=== PATIENT | female | born 1975 | race Caucasian/White ===

== ENCOUNTER 2017-04-27 08:21 | Day surgery (SDC) | payer OTHER ==
[~2017-04-27] VITALS: Ht 165.1 cm; Wt 54.5 kg
[2017-04-27] MEDS ORDERED: LACTATED RINGERS 1,000 ML IV SCH (08:57)
[2017-04-27] MEDS ORDERED: PRE NATAL VITAMIN PO (09:01)
[2017-04-27 09:24] VITALS: BP 112/65
[2017-04-27 09:24] LABS: BASOPHILS # (AUTO) 0.02 x10^3/uL (0-0.1); BASOPHILS % (AUTO) 0 % (0-1); EOSINOPHILS # (AUTO) 0.01 x10^3/uL (0-0.4); EOSINOPHILS % (AUTO) 0 % (1-7); LYMPHOCYTES # (AUTO) 1.92 x10^3/uL (1-3.4); LYMPHOCYTES % (AUTO) 29 % (22-44); MD NO; MEAN CORPUSCULAR HEMOGLOBIN 31.2 pg (27.0-34.8); MEAN CORPUSCULAR HGB CONC 34.4 g/dL (32.4-35.8); MEAN CORPUSCULAR VOLUME 90.8 fL (80-100); MEAN PLATELET VOLUME 7.5 fL (7.4-10.4); MONOCYTES # (AUTO) 0.38 x10^3/uL (0.2-0.8); MONOCYTES % (AUTO) 6 % (2-9); NEUTROPHILS # (AUTO) 4.26 x10^3/uL (1.8-6.8); NEUTROPHILS % (AUTO) 65 % (42-75); PLATELET COUNT 219 x10^3/uL (130-400); RED BLOOD COUNT 4.48 x10^6/uL (3.82-5.3); RED CELL DISTRIBUTION WIDTH 12.1 % (9.6-15.2)
[2017-04-27] MEDS ORDERED: PLEASE ENTER HEIGHT AND WEIGHT MC SCH (09:30)
[2017-04-27] MEDS ORDERED: MISOPROSTOL 200 MCG TABLET ONE ×2 (09:48→10:18)
[2017-04-27] MEDS ORDERED: BUPIVACAINE/PF 0.25% ONE (09:48)
[2017-04-27] MEDS ORDERED: OXYTOCIN 10 UNITS/ML, 1ML ONE (09:48)
[2017-04-27] MEDS ORDERED: SILVER NITRATE STICK TP ONE (09:49)
[2017-04-27] MEDS ORDERED: EPINEPHRINE 1 MG/ML, 1ML ONE (09:49)
[2017-04-27] MEDS ORDERED: METHYLERGONOVINE 0.2 MG/ML IM ONE ×2 (09:49→10:42)
[2017-04-27] MEDS ORDERED: FENTANYL PF 100 MCG/2ML ONE ×2 (09:57→11:16)
[2017-04-27] MEDS ORDERED: MIDAZOLAM 1 MG/ML, 2ML ONE (09:57)
[2017-04-27] MEDS ORDERED: PROPOFOL 10 MG/ML, 20ML ONE (09:59)
[2017-04-27] MEDS ORDERED: DEXAMETHASONE 4 MG/ML, 1ML ONE (10:03)
[2017-04-27] MEDS ORDERED: CEFAZOLIN 1,000 MG ONE (10:20)
[2017-04-27] MEDS ORDERED: ONDANSETRON 2MG/ML, 2ML ONE (10:22)
[2017-04-27] MEDS ORDERED: BUPIVACAINE/PF 0.25% INFIL ONE (10:27)
[2017-04-27] MEDS ORDERED: FENTANYL PF 100 MCG/2ML IV PRN (10:30)
[2017-04-27] MEDS ORDERED: LABETALOL 5MG/ML, 20ML IV PRN (10:30)
[2017-04-27] MEDS ORDERED: MEPERIDINE/PF 25MG/0.5ML IVPush PRN (10:30)
[2017-04-27] MEDS ORDERED: morphine SULFATE 10 MG/ML, 1ML IV PRN ×2 (10:30→14:30)
[2017-04-27] MEDS ORDERED: ONDANSETRON 2MG/ML, 2ML IVPush PRN (10:30)
[2017-04-27] MEDS ORDERED: OXYcodone 5 MG/5 ML ORAL.SOL UDC PO PRN (10:30)
[2017-04-27] MEDS ORDERED: PROMETHAZINE 25 MG/ML, 1ML IV PRN (10:30)
[2017-04-27] MEDS ORDERED: ACETAMINOPHEN 325 MG TABLET PO PRN (10:30)
[2017-04-27] MEDS ORDERED: KETOROLAC 30 MG/1 ML ONE (10:31)
[2017-04-27] MEDS ORDERED: MISOPROSTOL 200 MCG TABLET PR ONE (10:41)
[2017-04-27] MEDS ORDERED: OXYcodone 5 MG/5 ML ORAL.SOL UDC ONE (11:17)
[2017-04-27] MEDS ORDERED: IBUPROFEN 600 MG TABLET ONE (13:15)
[2017-04-27 13:29] VITALS: BP 110/70
[2017-04-27] MEDS ORDERED: PREN-1 PO (13:37)
[2017-04-27] MEDS ORDERED: IBUPROFEN 200 MG TABLET PO PRN (14:00)
[2017-04-27] MEDS ORDERED: PROMETHAZINE 25 MG/ML, 1ML IV ONE (14:30)
[2017-04-27] MEDS ORDERED: IBUPROFEN 600 MG TABLET PO PRN (14:30)
[2017-04-27] MEDS ORDERED: OXYcodone/APAP 5/325MG TABLET PO PRN (14:30)
[2017-04-28] MEDS ORDERED: PRENATAL VIT/IRON/FA 1 EACH TABLET PO SCH (09:00)
== END 2017-04-27 15:18 | disposition home or self-care (01) ==
LOC: OR 08:21 → 4NOR 08:26 → OR 15:18
PROVIDERS: ATTEND Obstetrics & Gynecology
DX: O02.1 Missed abortion (principal); Z3A.01 Less than 8 weeks gestation of pregnancy
CPT/HCPCS: 36415; 59820; 84703; 85025; 86850; 86900; 88305; J0690; J1100; J1885; J2210; J2250; J2405; J2704; J3010; J3490; J0171; J2590